=== PATIENT | female | born 1960 | race Caucasian/White ===

== ENCOUNTER → 2017-07-15 | Outpatient (CLI) | payer OTHER ==
[~2017-07-15] MED LIST: IBUPROFEN 800800 M1 PO; NOHOMEMEDICATIONS; NORCO 5-325 TA1 EAC1 PO; ROBAXIN500 MG PO; XANAX 0.25 MG0.25 MG; ZOFRAN ODT4 MG PO
== END ==
LOC: M.RAD 06-19 10:51 → M.CRD 06-25 11:00 → M.RAD 14:17
DX: Z12.31 Encounter for screening mammogram for malignant neoplasm of breast (principal); R94.31 Abnormal electrocardiogram [ECG] [EKG]; R94.6 Abnormal results of thyroid function studies

== ENCOUNTER 2017-12-09 19:02 | Emergency (ER) | payer OTHER ==
[~2017-12-09] VITALS: Ht 157.5 cm; Wt 99.8 kg
[~2017-12-09 19:02] MED LIST changes: -ROBAXIN500 MG PO; -XANAX 0.25 MG0.25 MG
[2017-12-09] MEDS ORDERED: XANAX 0.25 MG0.25 MG (19:18)
[2017-12-09] MEDS ORDERED: ROBAXIN500 MG PO (20:25)
[2017-12-09 20:29] VITALS: BP 122/86
== END 2017-12-09 20:30 | disposition home or self-care (01) ==
LOC: M.ERS 19:02
DX: S83.8X1A Sprain of other specified parts of right knee, initial encounter (principal); S70.01XA Contusion of right hip, initial encounter; Z88.8 Allergy status to other drugs, medicaments and biological substances; Z90.710 Acquired absence of both cervix and uterus; Z98.890 Other specified postprocedural states; W10.8XXA Fall (on) (from) other stairs and steps, initial encounter; Y93.89 Activity, other specified; Y92.89 Other specified places as the place of occurrence of the external cause; Y99.8 Other external cause status

== ENCOUNTER → 2018-05-27 | Outpatient (CLI) | payer OTHER ==
[~2018-05-27] MED LIST changes: +ROBAXIN500 MG PO; +XANAX 0.25 MG0.25 MG
== END ==
LOC: M.ULTRA 15:38
DX: E04.2 Nontoxic multinodular goiter (principal)

== ENCOUNTER → 2018-09-25 | Outpatient (CLI) | payer OTHER | LOC: M.RAD 11:11 | DX: Z12.31 Encounter for screening mammogram for malignant neoplasm of breast (principal) ==

== ENCOUNTER 2019-03-07 22:24 | Emergency (ER) | payer OTHER ==
[~2019-03-07] VITALS: Ht 157.5 cm; Wt 102.1 kg
[2019-03-07 22:28] VITALS: BP 182/88
[2019-03-07] MEDS ORDERED: LISINOPRIL2.5 MG PO (22:32)
[2019-03-07] MEDS ORDERED: IBUPROFEN 800800 M1 PO (22:32)
== END 2019-03-07 23:33 | disposition home or self-care (01) ==
LOC: M.ERS 22:24
DX: G43.909 Migraine, unspecified, not intractable, without status migrainosus (principal); Z90.710 Acquired absence of both cervix and uterus; Z98.890 Other specified postprocedural states; Z90.89 Acquired absence of other organs

== ENCOUNTER → 2019-09-30 | Outpatient (CLI) | payer OTHER ==
[~2019-09-30] MED LIST changes: +LISINOPRIL2.5 MG PO
== END ==
LOC: M.RAD 06:51
PROVIDERS: ATTEND Family Medicine
DX: Z12.31 Encounter for screening mammogram for malignant neoplasm of breast (principal)

== ENCOUNTER → 2020-09-19 | Outpatient (CLI) | payer OTHER | LOC: M.RAD 08:52 | PROVIDERS: ATTEND Family Medicine | DX: Z12.31 Encounter for screening mammogram for malignant neoplasm of breast (principal) ==